=== PATIENT | female | born 1995 | race Hispanic/Latino ===

== ENCOUNTER 2023-06-24 15:42 | Emergency (ER) | payer BC ==
[~2023-06-24] VITALS: Ht 160 cm; Wt 61.2 kg
[2023-06-24 16:13] LABS: APPEARANCE,URINE CLEAR (CLEAR); BILIRUBIN,URINE NEGATIVE (NEGATIVE); COLOR,URINE LIGHT-YELLOW (YELLOW); GLUCOSE, URINE (UA) NEGATIVE (NEGATIVE); KETONES,URINE NEGATIVE (NEGATIVE); LEUKOCYTE ESTERASE ,URINE NEGATIVE Leu/uL (NEGATIVE); NITRATE,URINE NEGATIVE (NEGATIVE); OCCULT BLOOD,URINE NEGATIVE (NEGATIVE); PROTEIN,URINE NEGATIVE (NEGATIVE); UROBILINOGEN,URINE 0.2 mg/dL (0.2-1.0)
[2023-06-24 16:18] LABS: HCG,QUALITATIVE URINE NEGATIVE (NEGATIVE)
[2023-06-24 16:19] LABS: ADD UA MICROSCOPIC YES
[2023-06-24 16:21] LABS: BACTERIA,URINE RARE /HPF (None Seen); MUCUS,URINE RARE LPF (None Seen); RBC,URINE 0-1 /HPF (0-1); SQUAMOUS EPITHELIAL CELL,UR RARE /HPF (0-2); WBC,URINE 0-1 /HPF (0-1)
[2023-06-24 16:50] LABS: BASOPHILS # (AUTO) 0.04 K/uL (0.00-0.20); BASOPHILS % (AUTO) 0.5 % (0.0-5.0); EOSINOPHILS # (AUTO) 0.07 K/uL (0.00-0.70); EOSINOPHILS % (AUTO) 0.9 % (0.0-8.0); HEMATOCRIT 38.1 % (36-48); IMMATURE GRANULOCYTE ABSOLUTE 0.02 K/uL (0-1); LYMPHOCYTES % (AUTO) 25.4 % (21.0-51.0); MEAN CORPUSCULAR HEMOGLOBIN 31.3 pg (27.0-33.0); MEAN CORPUSCULAR HGB CONC 34.1 g/dL (32.0-36.0); MEAN CORPUSCULAR VOLUME 91.6 fL (79-99); MONOCYTES # (AUTO) 0.7 K/uL (0.1-1.0); MONOCYTES % (AUTO) 9.1 % (3.0-13.0); NEUTROPHILS % (AUTO) 63.8 % (40.0-77.0); PLATELET COUNT (AUTO) 279 K/uL (130-400); RED BLOOD CELL COUNT(AUTO) 4.16 MIL/uL (4.00-5.50); RED CELL DISTRIBUTION WIDTH 12.3 % (11.0-15.5); WHITE BLOOD COUNT (AUTO) 7.8 K/uL (4.8-10.8)
[2023-06-24 17:03] LABS: CREATININE 0.7 mg/dL (0.5-1.0); POTASSIUM 3.9 mmol/L (3.5-5.1)
[2023-06-24 17:08] LABS: ALBUMIN 3.9 g/dL (3.5-5.0); BILIRUBIN,TOTAL 0.3 mg/dL (0.2-1.0); TOTAL PROTEIN, SERUM 7.4 g/dL (6.0-8.3)
[2023-06-24] MEDS: MAG/ALUM/SIMETH 30 ML UDCUP PO ONE (19:13)
[2023-06-24] MEDS: LIDOCAINE HCL 2% VISCOUS 15 ML UDCUP PO ONE (19:13)
[2023-06-24] MEDS: ONDANSETRON ODT 4MG TAB SL ONE (19:13)
[2023-06-24] MEDS: DICYCLOMINE HCL 10 MG/5 ML ML PO ONE (19:13)
[2023-06-24 20:26] VITALS: BP 138/81; PULSE 80; RESP 16; O2SAT 98
[2023-06-24] MEDS ORDERED: ONDA4TAB10 PO (21:05)
[2023-06-24] MEDS ORDERED: OMEP20CA12 PO (21:05)
== END 2023-06-24 21:17 | disposition home or self-care (01) ==
LOC: EDH 15:42
DX: R10.13 Epigastric pain (principal); K21.9 Gastro-esophageal reflux disease without esophagitis
CPT/HCPCS: 36415; 76856; 80053; 81001; 81025; 83690; 85025